=== PATIENT | male | born 1985 | race Caucasian/White ===

== ENCOUNTER → 2019-07-09 | Outpatient (CLI) | payer OTHER ==
--- NOTE | 2019-07-09 15:37 | REP ---
Left foot four views : There is no fracture or dislocation. Mineralization and joint spaces are normal. There are no calcifications or foreign bodies. There is a small calcaneal plantar spur. Impression: Negative left foot except for a small calcaneal plantar spur . Right foot four views : There is no fracture or dislocation. Mineralization and joint spaces are normal. There are no calcifications or foreign bodies. Impression: Negative right foot . Electronically Signed by Jase Gallardo MD 07/09/2019 03:28 P
--- NOTE | 2019-07-09 15:38 | REP ---
Lumbar spine five views: There are no comparisons. Vertebral body heights, interspacing alignment are normal. The pedicles, facets and sacroiliac articulations are unremarkable. There is no spondylolysis or spondylolisthesis. There are small anterior osteophytes at L2-3 and L3-4 compatible with minimal degenerative disc disease. Impression: Minimal degenerative disc disease at L2-3 L3-4. Otherwise, negative lumbar spine. Electronically Signed by Jase Gallardo MD 07/09/2019 03:29 P
== END ==
LOC: M RAD 08:35
PROVIDERS: ATTEND Surgery
DX: M54.5 Low back pain (principal); M25.571 Pain in right ankle and joints of right foot; M25.572 Pain in left ankle and joints of left foot